=== PATIENT | male | born 1995 | race Caucasian/White ===

== ENCOUNTER 2016-12-02 12:01 | Emergency (ER) | payer BC ==
[2016-12-02 12:13] VITALS: BP 110/54; PULSE 77; TEMP 97.8; BMI 36.8
[2016-12-02] MEDS ORDERED: IBUPROFEN 600 MG TABLET (FP) PO ONE ×2 (12:25→12:41)
--- NOTE | 2016-12-02 12:30 | PDOC ---
History of Present Illness - General Chief Complaint: Chest Pain Stated Complaint: CHEST PAIN VS ANXIETY Time Seen by Provider: 12/02/16 12:04 - History of Present Illness Initial Comments: 12/02/16 12:26 21 yo male with h/o anxiety her with c/o chest pain. 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 no sob. dull achy pain. no sob. no n/v not pleuritic. no recent travel. no h/o pe or dvt. no assoc n/v. no diaphoresis. does have family h/o CAD grandfather in 60' s. no h/o similar pain. thought maybe he was having an anxiety attack. denies palpitations. Past History - Past Medical History Allergies/Adverse Reactions: Allergies Allergy/AdvReac Type Severity Reaction Status Date / Time [place] Allergy Unknown Uncoded 12/02/16 12:03 Home Medications: Ambulatory Orders Ibuprofen 600 mg PO TID PRN #30 tablet 12/02/16 Psychiatric Problems: Yes (ANXIETY) - Immunization History Immunization Up to Date: Yes - Psycho/Social/Smoking Cessation Hx Anxiety: No Suicidal Ideation: No Smoking Status: No Smoking History: Current some day smoker Have you smoked in the past 12 months: Yes Number of Cigarettes Smoked Daily: 3 Information on smoking cessation initiated: Yes 'Breaking Loose' booklet given: 12/02/16 Hx Alcohol Use: Yes (SOCIAL) Drug/Substance Use Hx: No Substance Use Type: None Review of Systems - Review of Systems Constitutional: No: Diaphoresis, Fever HEENTM: No: Blurred Vision Respiratory: No: Cough, Orthopnea, Shortness of Breath Cardiac (ROS): Yes: Chest Pain. No: Edema, Irregular Heart Rate ABD/GI: No: Abdominal Distended Musculoskeletal: No: Back Pain Neurological: No: Headache, Paresthesia, Weakness Psychiatric: Yes: Anxiety All Other Systems: Reviewed and Negative *Physical Exam - Vital Signs Last Vital Signs Temp Pulse Resp BP Pulse Ox 97.8 F 77 20 110/54 98 12/02/16 12:02 12/02/16 12:02 12/02/16 12:02 12/02/16 12:02 12/02/16 12:02 - Physical Exam General Appearance: Yes: Appropriately Dressed HEENT: positive: KYLE, Pharynx Normal Neck: positive: Trachea midline Respiratory/Chest: positive: Chest Tender, Lungs Clear, Normal Breath Sounds, Other (left parasternal ttp, no crepitus, no step off. ) Cardiovascular: positive: Regular Rhythm, Regular Rate, S1, S2. negative: Edema , JVD Gastrointestinal/Abdominal: positive: Normal Bowel Sounds, Flat, Soft. negative : Tender Musculoskeletal: positive: Normal Inspection. negative: CVA Tenderness Extremity: positive: Other (no leg edema. no calf tenderness. ). negative: Pedal Edema Integumentary: positive: Normal Color, Dry, Warm Neurologic: positive: Fully Oriented, Alert, Normal Mood/Affect, Normal Response (no ) Heart Score/ECG Review #1 General ECG Interpretation: Sinus Rhythm, Normal Rate (73 bpm), Normal Intervals , No acute ischemic changes - ECG Intrepretation Rhythm: Regular Rhythm (non specific TWI III only .) ED Treatment Course - RADIOLOGY Radiology Studies Ordered: Category Date Time Status CHEST PA & LAT [RAD] Stat Radiology 12/02/16 12:25 Completed Medical Decision Making - Medical Decision Making 12/02/16 12:29 21 yo male with h/o anxiety here with chest pain. normal EKG. chest wall reproducible tenderness. no risk factors for PE. will obtain CXR r/o infection or other pathology. [facility] costhan levy for pain. *DC/Admit/Observation/Transfer Diagnosis at time of Disposition: Costochondritis - Discharge Dispostion Disposition: HOME Admit: No - Prescriptions Prescriptions: Ibuprofen 600 mg PO TID PRN #30 tablet PRN Reason: Pain - Patient Instructions Additional Instructions: take ibuprofen 600 mg every 8 hours as needed for pain, return for shortness of breath , fever, or any concerns. follow up with your primary doctor. your EKG and CXR were normal today.
--- NOTE | 2016-12-04 08:56 | EKG ---
Test Reason : Blood Pressure : / mmHG Vent. Rate : 073 BPM Atrial Rate : 073 BPM P-R Int : 144 ms QRS Dur : 094 ms QT Int : 384 ms P-R-T Axes : 023 042 009 degrees QTc Int : 423 ms NORMAL SINUS RHYTHM NORMAL ECG NO PREVIOUS ECGS AVAILABLE Confirmed by ANDERS DIXON MD ([id number]) on 12/04/2016 8:56:07 AM Referred By: ANTOINE DIXON Confirmed By:ANDERS DIXON MD
== END 2016-12-02 13:21 | disposition home or self-care (01) ==
LOC: FER 12:01
DX: M94.0 Chondrocostal junction syndrome [Tietze] (principal); F41.9 Anxiety disorder, unspecified; F17.210 Nicotine dependence, cigarettes, uncomplicated
CPT/HCPCS: 71020-TC; 93005; 99282-25

== ENCOUNTER 2022-10-13 08:28 | Emergency (ER) | payer OTHER ==
[2022-10-13 08:44] VITALS: BP 131/91; PULSE 100; RESP 18; TEMP 98.3; BMI 37.1
== END 2022-10-13 09:58 | disposition home or self-care (01) ==
LOC: FER 08:28
DX: T59.811A Toxic effect of smoke, accidental (unintentional), initial encounter (principal); X08.8XXA Exposure to other specified smoke, fire and flames, initial encounter; Y35.91XA Legal intervention, means unspecified, law enforcement official injured, initial encounter
CPT/HCPCS: 99282-25

== ENCOUNTER 2023-01-10 16:09 | Emergency (ER) | payer BC, OTHER ==
[2023-01-10] MEDS ORDERED: DIPHTH,PERTUSS(ACELL),TET 0.5 ML DISP.SYRIN IM ONE ×2 (16:10→16:49)
[2023-01-10 16:16] VITALS: BP 131/73; PULSE 73; RESP 20; TEMP 98; BMI 35.2
== END 2023-01-10 17:05 | disposition home or self-care (01) ==
LOC: FER 16:09
PROC: 3E0234Z Introduction of Serum, Toxoid and Vaccine into Muscle, Percutaneous Approach (ICD-10-PCS; principal; 2023-01-10)
DX: M79.671 Pain in right foot (principal); Z23 Encounter for immunization
CPT/HCPCS: 90715; 99283-25

== ENCOUNTER 2023-01-27 03:53 | Emergency (ER) | payer BC, OTHER ==
[2023-01-27 04:04] VITALS: BP 123/85; PULSE 89; RESP 18; TEMP 98.5; BMI 35.2
== END 2023-01-27 04:31 | disposition home or self-care (01) ==
LOC: FER 03:53
DX: S86.911A Strain of unspecified muscle(s) and tendon(s) at lower leg level, right leg, initial encounter (principal); S80.212A Abrasion, left knee, initial encounter; W22.8XXA Striking against or struck by other objects, initial encounter
CPT/HCPCS: 99282-25

== ENCOUNTER 2023-03-10 11:06 | Emergency (ER) | payer BC, OTHER ==
[2023-03-10 11:27] VITALS: BP 121/78; PULSE 62; RESP 16; TEMP 98.1; BMI 36.0
== END 2023-03-10 12:23 | disposition home or self-care (01) ==
LOC: FER 11:06
DX: K08.89 Other specified disorders of teeth and supporting structures (principal)
CPT/HCPCS: 99283-25

== ENCOUNTER 2023-07-13 01:21 | Emergency (ER) | payer OTHER, BC ==
[2023-07-13 01:31] VITALS: BP 144/82; PULSE 109; RESP 16; TEMP 99.1; BMI 36.0
[2023-07-13] MEDS ORDERED: IBUPROFEN 600 MG TABLET (FP) PO ONE ×2 (01:41→01:43)
== END 2023-07-13 01:46 | disposition home or self-care (01) ==
LOC: FER 01:21
DX: S63.633A Sprain of interphalangeal joint of left middle finger, initial encounter (principal); M79.645 Pain in left finger(s); X58.XXXA Exposure to other specified factors, initial encounter
CPT/HCPCS: 99283-25

== ENCOUNTER 2023-09-05 05:07 | Emergency (ER) | payer OTHER, BC ==
[2023-09-05 05:15] VITALS: BP 140/87; PULSE 93; RESP 16; TEMP 98.7; BMI 36.0
== END 2023-09-05 05:33 | disposition home or self-care (01) ==
LOC: FER 05:07
DX: Z77.21 Contact with and (suspected) exposure to potentially hazardous body fluids (principal)
CPT/HCPCS: 99281-25

== ENCOUNTER 2023-12-11 03:46 | Emergency (ER) | payer BC, OTHER ==
[2023-12-11 03:51] VITALS: BP 148/89; PULSE 103; RESP 18; TEMP 98; BMI 37.1
== END 2023-12-11 04:06 | disposition home or self-care (01) ==
LOC: FER 03:46
DX: S53.401A Unspecified sprain of right elbow, initial encounter (principal); S86.911A Strain of unspecified muscle(s) and tendon(s) at lower leg level, right leg, initial encounter; M79.651 Pain in right thigh; Y35.811A Legal intervention involving manhandling, law enforcement official injured, initial encounter
CPT/HCPCS: 99283-25

== ENCOUNTER 2023-12-22 05:22 | Emergency (ER) | payer OTHER, BC ==
[2023-12-22] MEDS ORDERED: IBUPROFEN 600 MG TABLET (FP) PO ONE (06:05)
[2023-12-22] MEDS: IBUPROFEN 600 MG TABLET (FP) PO ONE (06:06)
[2023-12-22 06:21] VITALS: BP 137/90; PULSE 104; RESP 18; TEMP 99.5; BMI 37.1
== END 2023-12-22 07:01 | disposition home or self-care (01) ==
LOC: FER 05:22
DX: S46.311A Strain of muscle, fascia and tendon of triceps, right arm, initial encounter (principal); S66.911A Strain of unspecified muscle, fascia and tendon at wrist and hand level, right hand, initial encounter; M79.641 Pain in right hand; W50.2XXA Accidental twist by another person, initial encounter; Y35.811A Legal intervention involving manhandling, law enforcement official injured, initial encounter
CPT/HCPCS: 99283-25

== ENCOUNTER 2024-05-02 06:53 | Emergency (ER) | payer OTHER ==
[2024-05-02 07:28] VITALS: BP 122/91; PULSE 87; RESP 20; TEMP 98.8; BMI 37.9
== END 2024-05-02 09:48 | disposition home or self-care (01) ==
LOC: FER 06:53
DX: R07.89 Other chest pain (principal); R05.9 Cough, unspecified; T59.3X3A Toxic effect of lacrimogenic gas, assault, initial encounter; Y35.811A Legal intervention involving manhandling, law enforcement official injured, initial encounter
CPT/HCPCS: 71045-TC-FY; 99283-25

== ENCOUNTER 2024-08-15 01:55 | Emergency (ER) | payer BC, OTHER ==
[2024-08-15 02:04] VITALS: BP 142/91; PULSE 106; RESP 20; TEMP 98.4; BMI 36.3
[2024-08-15] MEDS ORDERED: IBUPROFEN 400 MG TABLET (FP) PO ONE (02:22)
[2024-08-15] MEDS ORDERED: LIDOCAINE 4% PATCH TP ONE (02:22)
[2024-08-15] MEDS ORDERED: ACETAMINOPHEN 500 MG TABLET (FP) ONE (02:23)
[2024-08-15] MEDS: LIDOCAINE 5% TOPICAL PATCH TP ONE (02:28)
[2024-08-15] MEDS: IBUPROFEN 400 MG TABLET (FP) PO ONE (02:28)
[2024-08-15] MEDS: ACETAMINOPHEN 500 MG TABLET (FP) PO ONE (02:29)
[2024-08-15] MEDS: LIDOCAINE 4% PATCH TP ONE (03:39)
[2024-08-15] MEDS ORDERED: LIDOCAINE PATCH REMOVAL MC ONE ×2 (14:00→15:00)
== END 2024-08-15 03:38 | disposition home or self-care (01) ==
LOC: JER 01:55
DX: S50.812A Abrasion of left forearm, initial encounter (principal); X58.XXXA Exposure to other specified factors, initial encounter
CPT/HCPCS: 73090-TC-LT-FY; 99283-25